=== PATIENT | male | born 1980 | race Caucasian/White ===

== ENCOUNTER 2016-10-01 01:32 | Emergency (ER) | payer OTHER ==
[~2016-10-01] VITALS: Ht 170.2 cm; Wt 70.5 kg
[2016-10-01 01:35] VITALS: Ht 170.2 cm; Wt 70.5 kg
[2016-10-01] MEDS ORDERED: ONDANSETRON (ODT) 4 MG TAB ODT STA (02:31)
[2016-10-01] MEDS ORDERED: HYDROmorphONE 2 MG/ML SYG IM STA (02:31)
[2016-10-01] MEDS ORDERED: PEN500 PO (02:35)
[2016-10-01] MEDS ORDERED: HYDR-902 PO ×2 (02:35→03:04)
--- NOTE | 2016-10-01 02:37 | ERD ---
ER Documentation Chief Complaint Date/Time DATE: 10/01/16 TIME: 02:35 Chief Complaint BIBA x L lower molar tooth pain w/swollen jaw since 1400 HPI This 36-year-old male who had a filling fall out of his left lower posterior molar and today was eating some chicken and bit down on the phone on that tooth and ever since has had severe pain. On examination he states he has a cracked tooth. No bleeding of the gums no discharge from the gums no facial swelling pain is nonradiating and described as sharp and worse with biting down ROS All systems reviewed and are negative except as per history of present illness. Medications Home Meds Active Scripts Penicillin V Potassium* (Penicillin V K*) 500 Mg Tab, 500 MG PO QID for 10 Days , TAB Prov:LESHARRIOSAYAANSTDANNIES A. DO 10/01/16 Hydrocodone/Acetaminophen ([place] 10-325 Tablet) 1 Each Tablet, 1 TAB PO Q6H Y for PAIN, #20 TAB Prov:LEKKOSAYAANSTOLOS A. DO 10/01/16 Allergies Allergies: Coded Allergies: No Known Allergy (Unverified , 10/01/16) PMhx/Soc Medical and Surgical Hx: pt denies Medical Hx, pt denies Surgical Hx Hx Alcohol Use: No Hx Substance Use: No Hx Tobacco Use: No Smoking Status: Former smoker FmHx Family History: No coronary disease Physical Exam Vitals Vital Signs Date Time Temp Pulse Resp B/P Pulse Ox O2 Delivery O2 Flow Rate FiO2 10/01/16 01:35 98.3 95 20 150/95 98 Physical Exam Const: [Well-developed, well-nourished] Head: [Atraumatic, normocephalic] Eyes: [Normal Conjunctiva, PERRLA, EOMI, normal sclera, no nystagmus] ENT: [Normal External Ears, Nose and Mouth, moist mucus membranes many dental fillings the left posterior second to rear molar has a missing filling, possible crack tooth.] Neck: [Full range of motion. No meningismus, no lymphadenopathy.] Resp: [Clear to auscultation bilaterally, no wheezing, rhonchi, rales] Cardio: [Regular rate and rhythm, no murmurs, S1 S2 present] Abd: [Soft, non tender x 4, non distended. Normal bowel sounds, no guarding or rebound, no pulsitile abdominal masses or bruits] Skin: [No petechiae or rashes, no ecchymosis , no maculopapular rash] Back: [No midline or flank tenderness] Ext: [No cyanosis, or edema, FROM x 4, normal inspection, neurovascularly intact x 4] Neur: [Awake and alert, STR 5/5 x 4, sensation intact x 4, no focal findings, cerebellum intact] Psych: [Normal Mood and Affect] Results 24 hrs Current Medications Medications (Trade) Dose Ordered Sig/Dinorah Route PRN Reason Start Time Stop Time Status Last Admin Dose Admin Hydromorphone HCl (Dilaudid) 2 mg ONCE STAT IM 10/01/16 02:31 10/01/16 02:32 DC Ondansetron HCl (Zofran Odt) 4 mg ONCE STAT ODT 10/01/16 02:31 10/01/16 02:32 DC Departure Diagnosis: Primary Impression: Toothache Condition: Stable Patient Instructions: Dental Pain Referrals: NO PRIMARY,CARE PHYSICIAN (PCP) RENALDO BURTON DO Oct 01, 2016 02:37
== END 2016-10-01 03:36 | disposition home or self-care (01) ==
LOC: FTE 01:32
DX: K08.89 Other specified disorders of teeth and supporting structures (principal); Z87.891 Personal history of nicotine dependence
CPT/HCPCS: 96372; J1170